=== PATIENT | female | born 1930 | race Caucasian/White ===

== ENCOUNTER 2021-01-06 16:37 | Emergency (ER) | payer MEDICARE ==
[~2021-01-06] VITALS: Ht 154.9 cm; Wt 55.0 kg
--- NOTE | 2021-01-06 16:49 | NUR ---
BIBA FOR GLF, PT STATES FWW GOT STUCK AND SHE FELL HITTING HER RIGHT SIDE AND IS NOW HAVING PAIN WITH INHALING ON THAT SIDE. PT STATES "I DO NOT BELIEVE I HIT MY HEAD", REMSA STATES SHE DID, NO SWELLING OR WOUNDS NOTED TO HEAD. FALL WAS NOT WITNESSED BY FAMILY AT HOME HOWEVER GRANDKIDS WERE AT HOME AND ABLE TO HELP PT UP. PT ORIENTED X 4. HAS MULTIPLE ABRASIONS TO RIGHT LATERAL TORSO, ALL SUPERFICAL WITH NO BLEEDING. LUNG SOUNDS CLEAR IN ALL ETIENNE. HX A-FIB, TAKES XARELTO. PT RECEIVED 50 MG FENTANYL AND 4 MG ZOFRAN FROM EMS.
--- NOTE | 2021-01-06 16:56 | NUR ---
REPORT GIVEN TO PRIMARY RNS DANIEL.
--- NOTE | 2021-01-06 17:18 | NUR ---
PT RESTING COMFORTABLY IN [facility]. NAD.
--- NOTE | 2021-01-06 17:35 | NUR ---
MD BEDSIDE FOR ASSESSMENT
--- NOTE | 2021-01-06 17:35 | NUR ---
JORGE BROWNE [phone]
[2021-01-06 18:16] LABS: BASOPHILS % (AUTO) 1 % (0-1); EOSINOPHILS % (AUTO) 1 % (1-7); LYMPHOCYTES % (AUTO) 23 % (22-44); MEAN CORPUSCULAR HEMOGLOBIN 30.5 pg (27.0-34.8); MEAN CORPUSCULAR HGB CONC 33.5 g/dL (32.4-35.8); MEAN PLATELET VOLUME 9.2 fL (7.4-10.4); MONOCYTES % (AUTO) 7 % (2-9); NEUTROPHILS % (AUTO) 69 % (42-75); PLATELET COUNT 242 x10^3/uL (130-400); RED BLOOD COUNT 4.48 x10^6/uL (3.82-5.3); RED CELL DISTRIBUTION WIDTH 14.7 % (9.6-15.2)
[2021-01-06 18:29] LABS: ALANINE AMINOTRANSFERASE 21 U/L (12-78); ANION GAP 6 mmol/L (5-15); CALCIUM 8.4 mg/dL (8.5-10.1); CHLORIDE 110 mmol/L (98-107); CREATININE 0.94 mg/dL (0.55-1.02)
[2021-01-06 18:32] LABS: ALKALINE PHOSPHATASE 85 U/L (45-117); TOTAL PROTEIN 6.3 g/dL (6.4-8.2)
[2021-01-06] MEDS ORDERED: OXYcodone/APAP 5/325MG TABLET ONE (18:57)
[2021-01-06] MEDS ORDERED: OXYcodone/APAP 5/325MG TABLET PO ONE (19:00)
[2021-01-06 19:01] VITALS: BP 113/67
== END 2021-01-06 20:31 | disposition admitted as inpatient to this hospital (09) ==
LOC: ED 19:00
DX: S20.411A Abrasion of right back wall of thorax, initial encounter (principal); R51.9 Headache, unspecified; R10.9 Unspecified abdominal pain; R07.89 Other chest pain; M54.2 Cervicalgia; I50.9 Heart failure, unspecified; I48.91 Unspecified atrial fibrillation; Z87.891 Personal history of nicotine dependence; Z79.01 Long term (current) use of anticoagulants; W18.30XA Fall on same level, unspecified, initial encounter; Y93.89 Activity, other specified; Y92.009 Unspecified place in unspecified non-institutional (private) residence as the place of occurrence of the external cause; Y99.8 Other external cause status
CPT/HCPCS: 36415; 70450; 71045; 72125; 80053; 85025; 99285